=== PATIENT | male | born 1950 | race Caucasian/White ===

== ENCOUNTER 2023-07-17 21:07 | Emergency (ER) | payer OTHER ==
[2023-07-17 21:30] VITALS: BMI 33.6
[2023-07-17 21:37] LABS: HEMATOCRIT 50.9 % (35.4-49); HEMOGLOBIN 17.3 G/dL (11.7-16.9); MCH 33.4 pg (25.7-33.7); MEAN PLT VOLUME 8.4 fl (7.5-11.1); PLATELET COUNT 185.7 10^3/uL (134-434); RBC 5.19 10^6/uL (4.00-5.60); RDW 14.9 % (11.9-15.9); WHITE BLOOD COUNT 11.6 10^3/uL (4.0-10.8)
[2023-07-17 21:51] LABS: ALBUMIN 3.8 g/dl (3.4-5.0); BILIRUBIN,TOTAL 0.7 mg/dl (0.2-1); CALCIUM 9.3 mg/dl (8.5-10.1); CREATININE 1.4 mg/dl (0.6-1.3); POTASSIUM 4.8 mmol/L (3.5-5.1); TOT PROT 7.9 g/dl (6.4-8.2)
[2023-07-17] MEDS ORDERED: ACETAMINOPHEN INJECTION 100 ML IVPB ONE (22:04)
[2023-07-17] MEDS: ACETAMINOPHEN 1000 MG/100 ML BAG IVPB ONE (22:07)
[2023-07-17 22:12] LABS: PLATELET ESTIMATE ADEQUATE
[2023-07-18] MEDS ORDERED: HEPARIN NA (PORCINE) 5,000 UNITS/ML 1ML VIAL IVPUSH PRN ×2 (00:26)
[2023-07-18] MEDS ORDERED: CLOPIDOGREL BISULFATE 300 MG TABLET ONE (00:36)
[2023-07-18] MEDS ORDERED: NITROGLYCERIN SUBLINGUAL 1/150 0.4 MG TAB ONE (00:36)
[2023-07-18] MEDS ORDERED: ASPIRIN 81 MG CHEWABLE TABLETS ONE ×2 (00:36→11:01)
[2023-07-18] MEDS: ASPIRIN 81 MG CHEWABLE TABLETS PO ONE ×2 (00:41→11:01)
[2023-07-18] MEDS: NITROGLYCERIN SUBLINGUAL 1/150 0.4 MG TAB SL ONE (00:41)
[2023-07-18] MEDS: CLOPIDOGREL BISULFATE 300 MG TABLET PO ONE (00:48)
[2023-07-18 01:37] VITALS: TEMP 97.6
[2023-07-18] MEDS ORDERED: HEPARIN NA (PORCINE) 5,000 UNITS/ML 1ML VIAL ONE (02:11)
[2023-07-18] MEDS ORDERED: HEPARIN INFUSION - 25,000 UNITS/500 ML INFUS.BAG IVPB ONE (02:11)
[2023-07-18] MEDS: HEPARIN NA (PORCINE) 5,000 UNITS/ML 1ML VIAL IVPUSH ONE (02:24)
[2023-07-18] MEDS: HEPARIN INFUSION - 25,000 UNITS/500 ML INFUS.BAG IVPB SCH (02:24)
[2023-07-18] MEDS: morphine CARPU-JECT 4 MG/1 ML DISP.SYRIN IVPUSH ONE (03:38)
[2023-07-18] MEDS ORDERED: NITROGLYCERIN 2% OINTMENT - 1GM PACKET TD ONE (04:00)
[2023-07-18] MEDS: NITROGLYCERIN 2% OINTMENT - 1GM PACKET TD ONE (04:03)
[2023-07-18 07:58] LABS: BASO % 0.8 % (0-2.0); EOS % 0.6 % (0-4.5); HEMATOCRIT 46.9 % (35.4-49); HEMOGLOBIN 15.6 GM/dL (11.7-16.9); LYMPH % 18.7 % (8-40); MCH 32.2 pg (25.7-33.7); MCHC 33.2 g/dl (32.0-35.9); MONO % 7.1 % (3.8-10.2); NEUT % 72.8 % (42.8-82.8); PLATELET COUNT 196 10^3/uL (134-434); RBC 4.83 M/mm3 (4.00-5.60); RDW 14.9 % (11.9-15.9); WHITE BLOOD COUNT 11.5 K/mm3 (4.0-10.0)
[2023-07-18 08:01] LABS: CHOLESTEROL 137 mg/dL (50-200)
[2023-07-18 08:06] LABS: HDL CHOLESTEROL 48 mg/dL (40-60); LDL CHOLESTEROL (ONLY DFH) 73 mg/dl (5-100)
[2023-07-18] MEDS ORDERED: ATORVASTATIN CA 80 MG TABLET (FP) ONE (09:51)
[2023-07-18] MEDS ORDERED: amLODIPine BESYLATE 5 MG TABLET (FP) ONE (09:51)
[2023-07-18] MEDS: ATORVASTATIN CA 80 MG TABLET (FP) PO ONE (09:54)
[2023-07-18] MEDS: amLODIPine BESYLATE 5 MG TABLET (FP) PO SCH (09:55)
[2023-07-18 11:03] VITALS: BP 111/72; PULSE 89; RESP 18
[2023-07-19] MEDS ORDERED: CLOPIDOGREL BISULFATE 75 MG TABLET (FP) PO SCH (10:00)
[2023-07-19] MEDS ORDERED: ASPIRIN 81 MG CHEWABLE TABLETS PO SCH (10:00)
== END 2023-07-18 11:15 | disposition admitted as inpatient to this hospital (09) ==
LOC: FER 21:07 → FM/S 07-18 01:06 → UNDOADMIN 07-18 01:06 → FER 07-18 11:15
PROC: 3E033NZ Introduction of Analgesics, Hypnotics, Sedatives into Peripheral Vein, Percutaneous Approach (ICD-10-PCS; principal; 2023-07-17)
PROC: 3E033GC Introduction of Other Therapeutic Substance into Peripheral Vein, Percutaneous Approach (ICD-10-PCS; 2023-07-18)
PROC: 3E033GC Introduction of Other Therapeutic Substance into Peripheral Vein, Percutaneous Approach (ICD-10-PCS; 2023-07-18)
DX: R07.2 Precordial pain (principal); R05.9 Cough, unspecified; I24.9 Acute ischemic heart disease, unspecified; Z20.822 Contact with and (suspected) exposure to COVID-19
CPT/HCPCS: 0241U-QW; 36415; 71045-TC-FY; 80053; 80061; 83036; 84443; 84484; 85025; 85027; 85730; 93005; 99285-25; J0131; J1644